=== PATIENT | male | born 1965 | race Caucasian/White ===

== ENCOUNTER 2017-09-14 09:33 | Day surgery (SDC) | payer OTHER ==
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
[2017-09-14] MEDS ORDERED: ceFAZolin 2 GM/DEXTROSE 100 ML IV ONE (09:50)
[2017-09-14] MEDS ORDERED: LR 1,000 ML IV SCH (09:50)
[2017-09-14] MEDS ORDERED: LR 1,000 ML IV ONE (09:51)
[2017-09-14] MEDS ORDERED: LIDOCAINE 1% 2 ML INJ ID PRN (09:51)
[2017-09-14] MEDS ORDERED: BUPIVACAINE/EPI 0.5% 30 ML SDV ONE (10:02)
[2017-09-14] MEDS ORDERED: MIDAZOLAM 2 MG/2 ML VIAL IVP ONE (10:25)
--- NOTE | 2017-09-14 10:27 | PDANEPAE ---
ANE History of Present Illness s/p right distal radius fx p/f ORIF ANE Past Medical History - Cardiovascular History Hx Hypertension: No Hx Arrhythmias: No Hx Chest Pain: No Hx Coronary Artery / Peripheral Vascular Disease: No Hx CHF / Valvular Disease: No Hx Palpitations: No Cardiovascular History Comment: BP RUNS LOW - Pulmonary History Hx COPD: No Hx Asthma/Reactive Airway Disease: No Hx Recent Upper Respiratory Infection: No Hx Oxygen in Use at Home: No Hx Sleep Apnea: No Sleep Apnea Screening Result - Last Documented: Negative - Neurologic History Hx Cerebrovascular Accident: No Hx Seizures: No Hx Dementia: No - Endocrine History Hx Diabetes: No Obesity: no - Renal History Hx Renal Disorders: No - Liver History Hx Hepatic Disorders: No - Neurological & Psychiatric Hx Hx Neurological and Psychiatric Disorders: No - Cancer History Hx Cancer: No - Congenital Disorder History Hx Congenital Disorders: No - GI History Hx Gastrointestinal Disorders: Yes - Other Health History Other Health History: NEG - Chronic Pain History Chronic Pain: No - Surgical History Prior Surgeries: R HAND REPAIR ANE Review of Systems Review of systems is: negative Review of Systems: - Exercise capacity METS (RN): 5 METS ANE Patient History - Allergies Allergies/Adverse Reactions: No Known Allergies Allergy (Unverified 09/13/17 11:52) - Home Medications Home medications: home medication list seen and reviewed Home Medications: Herbals/Supplements -Info Only 09/13/17 [Last Taken 09/12/17] Tylenol 09/13/17 [Last Taken 09/13/17 22:00] Vicodin 5-300 mg Tablet 09/13/17 [Last Taken 09/12/17] - NPO status NPO Since - Liquids (Date): 09/14/17 NPO Since - Liquids (Time): 08:10 NPO Since - Solids (Date): 09/13/17 NPO Since - Solids (Time): 22:30 - Anes Hx Anes Hx: no prior problems - Smoking Hx Smoking Status: Never smoked - Family Anes Hx Family Hx Anesthesia Complications: NEG ANE Labs/Vital Signs - Vital Signs Blood Pressure: 116/83 Heart Rate: 55 Respiratory Rate: 14 O2 Sat (%): 97 Height: 182.88 cm Weight: 71.668 kg ANE Physical Exam - Airway Neck exam: FROM Mallampati Score: Class 1 Mouth exam: normal dental/mouth exam - Pulmonary Pulmonary: no respiratory distress - Cardiovascular Cardiovascular: regular rate and rhythym - ASA Status ASA Status: I ANE Anesthesia Plan Anesthesia Plan: GA w LMA
[2017-09-14] MEDS ORDERED: fentaNYL 100 MCG/2 ML INJ ONE ×3 (10:31→13:03)
[2017-09-14] MEDS ORDERED: PROPOFOL 200 MG/20 ML VIAL ONE (10:31)
[2017-09-14] MEDS ORDERED: LIDOCAINE 2% 5 ML SDV ONE (10:33)
--- NOTE | 2017-09-14 11:04 | PDHPUP ---
History & Physical Update H&P update statement: This history and physical update is based on an assessment of the patient which was completed after admission or registration (within 24 hours), but prior to the surgery/procedure. H&P update: no change in patient's condition since H&P completed
[2017-09-14] MEDS ORDERED: HYDROmorphONE/DILAUDID 2 MG/ML INJ IVP PRN (12:12)
[2017-09-14] MEDS ORDERED: NALOXONE HCL 0.4 MG/ML INJ IVP PRN (12:12)
[2017-09-14] MEDS ORDERED: ACETAMINOPHEN 500 MG TAB PO PRN (12:12)
[2017-09-14] MEDS ORDERED: PROMETHAZINE HCL 25 MG/ML INJ IVP PRN (12:12)
[2017-09-14] MEDS ORDERED: ALBUTEROL 3 ML DEYVIAL IH PRN (12:12)
[2017-09-14] MEDS ORDERED: LR 500 ML IV PRN (12:12)
[2017-09-14] MEDS ORDERED: oxyCODONE IR 5 MG TAB PO PRN (12:12)
[2017-09-14] MEDS ORDERED: LABETALOL HCL 5 MG/ML 20 ML MDV IVP PRN (12:12)
[2017-09-14] MEDS ORDERED: HYDROCODONE/APAP 5/325 TAB PO PRN (12:12)
[2017-09-14] MEDS ORDERED: ONDANSETRON 4 MG/2 ML VIAL IVP PRN (12:12)
--- NOTE | 2017-09-14 12:12 | POSTANESTH ---
Post Anesthetic Evaluation Cardiovascular Status: Normal, Stable Respiratory Status: Normal, Stable Level of Consciousness/Mental Status: Can Participate in Eval, Alert and Oriented Pain Control: Adequate, Prn Tx Ordered Nausea/Vomiting Control: Adequate, Prn Tx Ordered Complications Possibly Related to Anesthesia: None Noted
[2017-09-14] MEDS ORDERED: OXYCODONE/APAP 5/325 TAB PO PRN (12:43)
--- NOTE | 2017-09-14 12:47 | POSTOPPROG ---
Post Op Note Date of Operation: 09/14/17 Surgeon: James Ramires Music Educator: Oliva Schafer, PAC Anesthesia: GET(General Endotracheal), LMA Pre-op Diagnosis: Right distal radius fracture Post-op Diagnosis: Right distal radius fracture Indication: Right distal radius fracture Procedure: ORIF right distal radius Inf/Abcess present in the surg proc area at time of surgery?: No Depth: Deep Incisional (Fascial) EBL: Minimal Complications: None.
[2017-09-14] MEDS: fentaNYL 100 MCG/2 ML INJ IVP PRN ×2 (13:07→13:18)
[2017-09-14] MEDS ORDERED: HYDROCODONE/APAP 5/325 TAB ONE (13:13)
[2017-09-14] MEDS ORDERED: HYDROmorphONE/DILAUDID 1 MG/ML INJ ONE (13:20)
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
[2017-09-14 14:28] VITALS: BP 120/79
== END 2017-09-14 16:00 | disposition home or self-care (01) ==
LOC: FSGY 09:33
PROVIDERS: ATTEND Orthopaedic Surgery
PROC: 0PSH04Z Reposition Right Radius with Internal Fixation Device, Open Approach (ICD-10-PCS; principal; 2017-09-14 11:00)
DX: S52.571A Other intraarticular fracture of lower end of right radius, initial encounter for closed fracture (principal); S52.125A Nondisplaced fracture of head of left radius, initial encounter for closed fracture; V18.0XXA Pedal cycle driver injured in noncollision transport accident in nontraffic accident, initial encounter; Y93.55 Activity, bike riding
CPT/HCPCS: C1713; J0690; J1170; J2250; J2704; J3010

== ENCOUNTER 2018-01-19 21:12 | Emergency (ER) | payer OTHER ==
[2018-01-19] MEDS ORDERED: NS 1,000 ML IV ONE (21:24)
--- NOTE | 2018-01-19 21:24 | EDPHY ---
H & P Stated Complaint: RLQ pain N/V Time Seen by Provider: 01/19/18 21:24 HPI/ROS: HPI CHIEF COMPLAINT: Right flank pain. HISTORY OF PRESENT ILLNESS: 52-year-old male, presents emergency room with right flank pain. This started at 830 this evening. Describes sharp stabbing right flank pain. Also complains of urgency. Associated nausea with 1 episode of vomiting here. Denies fever, chest pain, shortness of breath. Main complaint right flank pain. Past Medical History: Denies significant medical history Past Surgical History: Right wrist surgery Social History: Denies daily use drugs alcohol tobacco. Family History: Noncontributory ROS REVIEW OF SYSTEMS: 10 Systems were reviewed and negative with the exception of the elements mentioned in the history of present illness. Exam Constitutional triage nursing summary reviewed, vital signs reviewed, awake/ alert. Eyes normal conjunctivae and sclera, EOMI, PERRLA. HENT normal inspection, atraumatic, moist mucus membranes, no epistaxis, neck supple/ no meningismus, no raccoon eyes. Respiratory clear to auscultation bilaterally, normal breath sounds, no respiratory distress, no wheezing. Cardiovascular rate normal, regular rhythm, no murmur, no edema, distal pulses normal. Gastrointestinal soft, non-tender, no rebound, no guarding, normal bowel sounds, no distension, no pulsatile mass. Genitourinary mild right CVA tenderness. Musculoskeletal no midline vertebral tenderness, full range of motion, no calf swelling, no tenderness of extremities, no meningismus, good pulses, neurovascularly intact. Skin pink, warm, & dry, no rash, skin atraumatic. Neurologic awake, alert and oriented x 3, AAOx3, moves all 4 extremities equally, motor intact, sensory intact, CN II-XII intact, normal cerebellar, normal vision, normal speech. Psychiatric normal mood/affect. Heme/Lymph/Immune no lymphadenopathy. Differential diagnosis includes but is not limited to and in no particular order : Bowel obstruction, appendicitis, gallbladder disease, diverticulitis, colitis , enteritis, perforated viscus, gastritis, GERD, esophagitis, urinary tract infection, pyelonephritis, kidney stones Medical Decision Making: Plan for this patient IV establishment IV fluid bolus , IV Dilaudid IV Zofran for nausea pain control. Check UA, basic blood work, CT scan abdomen pelvis without contrast for flank pain. Re-evaluation: CT scan abdomen pelvis without contrast shows right-sided UVJ stone 3 mm with hydronephrosis. Additionally patient has peptic cyst that need outpatient follow-up. I have instructed the patient of this. CT scan reviewed. Right-sided kidney stone. Discussed liver cyst with patient Recommend follow up with primary care doctor. Source: Patient - Personal History Current Tetanus/Diphtheria Vaccine: Unsure Current Tetanus Diphtheria and Acellular Pertussis (TDAP): Unsure - Medical/Surgical History Hx Asthma: No Hx Chronic Respiratory Disease: No Hx Diabetes: No Hx Cardiac Disease: No Hx Renal Disease: No Hx Cirrhosis: No Hx Alcoholism: No Hx HIV/AIDS: No Hx Splenectomy or Spleen Trauma: No - Social History Smoking Status: Never smoked Constitutional: Initial Vital Signs Temperature (C) 36.9 C 01/19/18 21:14 Heart Rate 61 01/19/18 21:14 Respiratory Rate 16 01/19/18 21:14 Blood Pressure 135/77 H 01/19/18 21:14 O2 Sat (%) 100 01/19/18 21:14 O2 Delivery Mode Room Air Allergies/Adverse Reactions: No Known Allergies Allergy (Unverified 09/13/17 11:52) Home Medications: Medication Instructions Recorded Herbals/Supplements -Info Only 09/13/17 Tylenol 09/13/17 Vicodin 5-300 mg Tablet 09/13/17 Hydrocodone/APAP 5/325 [Kingsland 1 - 2 tab PO Q4H PRN #10 tab 01/19/18 5/325] Ondansetron HCl [Zofran] 4 mg PO Q4-6PRN PRN #10 tablet 01/19/18 Tamsulosin HCl [Flomax] 0.4 mg PO DAILY #10 cap 01/19/18 Medical Decision Making - Diagnostics Imaging Results: Imaging Impressions Abdomen/Pelvis CT 01/19/18 21:29 Impression: 1. Mild to moderate right hydroureteronephrosis secondary to a 3 mm obstructing calculus in the distal right ureterovesical junction. 2. No left nephrolithiasis or hydronephrosis. 3. Constipation. 4. Two hypodense hepatic lesions which may represent cysts, but are incompletely evaluated without contrast measuring up to 1.9 cm. Recommend follow -up abdominal ultrasound imaging when the patient's medical condition permits, to exclude masses. Attention: This CT examination is specifically designed to evaluate patients who are clinically suspected of having acute obstructive uropathy. This examination does not use radiographic contrast, and as such, provides only a limited evaluation of the abdomen, pelvis and retroperitoneum. If there is further clinical suspicion for pathological conditions other than obstructive uropathy, a complete CT evaluation of the abdomen and pelvis utilizing intravenous, oral, and rectal contrast should be considered. Findings and recommendations discussed with Emergency Department physician, Pipe Lim MD at 2159 hour, 01/19/2018. Final report concurs with initial preliminary interpretation. - Data Points Laboratory Results: Laboratory Results 01/19/18 21:20 01/19/18 21:20 01/19/18 01/19/18 01/19/18 21:25 21:20 21:20 WBC RBC Hgb Hct MCV MCH MCHC RDW Plt Count MPV Neut % (Auto) Lymph % (Auto) [place] % (Auto) Eos % (Auto) Baso % (Auto) Nucleat RBC Rel Count Absolute Neuts (auto) Absolute Lymphs (auto) Absolute Monos (auto) Absolute Eos (auto) Absolute Basos (auto) Absolute Nucleated RBC Immature Gran % Seg Neutrophils % Band Neutrophils % Lymphocytes % Monocytes % Eosinophils % Basophils % Metamyelocytes % Myelocytes % Promyelocytes % Blast Cells % Immature Gran # Absolute Seg Neuts Absolute Band Neuts Absolute Lymphocytes Absolute Monocytes Absolute Eosinophils Absolute Basophils Absolute Metamyelocyte Absolute Myelocytes Absolute Promyelocytes Absolute Plasma Cells Nucleated RBCs RBC/WBC/PLT Morphology Absolute Blast Cells Plasma Cells % Platelet Estimate PT 14.3 SEC SEC (12.0-15.0) INR 1.09 (0.83-1.16) APTT 30.5 SEC SEC (23.0-38.0) VBG Lactic Acid Sodium 139 mEq/L mEq/L (135-145) Potassium 3.7 mEq/L mEq/L (3.3-5.0) Chloride 101 mEq/L mEq/L (97-110) Carbon Dioxide 24 mEq/l mEq/l (22-31) Anion Gap 14 mEq/L mEq/L (8-16) BUN 16 mg/dL mg/dL (7-23) Creatinine 1.0 mg/dL mg/dL (0.7-1.3) Estimated GFR > 60 Glucose 106 mg/dL H mg/dL (70-100) Calcium 9.8 mg/dL mg/dL (8.5-10.4) Total Bilirubin 0.7 mg/dL mg/dL (0.1-1.4) Conjugated Bilirubin 0.1 mg/dL mg/dL (0.0-0.5) Unconjugated Bilirubin 0.6 mg/dL mg/dL (0.0-1.1) AST 24 IU/L IU/L (17-59) ALT 29 IU/L IU/L (21-72) Alkaline Phosphatase 55 IU/L IU/L (38-126) Total Protein 7.1 g/dL g/dL (6.3-8.2) Albumin 4.6 g/dL g/dL (3.5-5.0) Lipase 126 IU/L IU/L (23-300) Urine Color YELLOW Urine Appearance HAZY Urine pH 6.0 (5.0-7.5) Ur Specific [place] 1.019 (1.002-1.030) Urine Protein NEGATIVE (NEGATIVE) Urine Ketones 2+ H (NEGATIVE) Urine Blood NEGATIVE (NEGATIVE) Urine Nitrate NEGATIVE (NEGATIVE) Urine Bilirubin NEGATIVE (NEGATIVE) Urine Urobilinogen NEGATIVE EU EU (0.2-1.0) Ur Leukocyte Esterase NEGATIVE (NEGATIVE) Urine Glucose NEGATIVE (NEGATIVE) 01/19/18 01/19/18 21:20 21:20 WBC 8.17 10^3/uL 10^3/uL (3.80-9.50) RBC 4.79 10^6/uL 10^6/uL (4.40-6.38) Hgb 15.2 g/dL g/dL (13.7-17.5) Hct 43.6 % % (40.0-51.0) MCV 91.0 fL fL (81.5-99.8) MCH 31.7 pg pg (27.9-34.1) MCHC 34.9 g/dL g/dL (32.4-36.7) RDW 13.1 % % (11.5-15.2) Plt Count 220 10^3/uL 10^3/uL (150-400) MPV 10.2 fL fL (8.7-11.7) Neut % (Auto) 58.8 % % (39.3-74.2) Lymph % (Auto) 25.2 % % (15.0-45.0) [place] % (Auto) 7.6 % % (4.5-13.0) Eos % (Auto) 7.8 % H % (0.6-7.6) Baso % (Auto) 0.5 % % (0.3-1.7) Nucleat RBC Rel Count 0.0 % % (0.0-0.2) Absolute Neuts (auto) 4.80 10^3/uL 10^3/uL (1.70-6.50) Absolute Lymphs (auto) 2.06 10^3/uL 10^3/uL (1.00-3.00) Absolute Monos (auto) 0.62 10^3/uL 10^3/uL (0.30-0.80) Absolute Eos (auto) 0.64 10^3/uL H 10^3/uL (0.03-0.40) Absolute Basos (auto) 0.04 10^3/uL 10^3/uL (0.02-0.10) Absolute Nucleated RBC 0.00 10^3/uL 10^3/uL (0-0.01) Immature Gran % 0.1 % % (0.0-1.1) Seg Neutrophils % 64.0 % % Band Neutrophils % 1.0 % % Lymphocytes % 29.0 % % Monocytes % 5.0 % % Eosinophils % 1.0 % % Basophils % 0.0 % % Metamyelocytes % 0.0 % % Myelocytes % 0.0 % % Promyelocytes % 0.0 % % Blast Cells % 0.0 % % Immature Gran # 0.01 10^3/uL 10^3/uL (0.00-0.10) Absolute Seg Neuts 5.23 10^/uL 10^/uL (1.70-6.50) Absolute Band Neuts 0.08 10^3/uL 10^3/uL (0.00-0.70) Absolute Lymphocytes 2.37 10^3/uL 10^3/uL (1.00-3.00) Absolute Monocytes 0.41 10^3/uL 10^3/uL (0.30-0.80) Absolute Eosinophils 0.08 10^3/uL 10^3/uL (0.03-0.40) Absolute Basophils 0.00 10^3/uL L 10^3/uL (0.02-0.10) Absolute Metamyelocyte 0.00 10^3/mL 10^3/mL (0.00-0.00) Absolute Myelocytes 0.00 10^3/mL 10^3/mL (0.00-0.00) Absolute Promyelocytes 0.00 10^3/uL 10^3/uL (0.00-0.00) Absolute Plasma Cells 0.00 10^3/uL 10^3/uL (0.00-0.00) Nucleated RBCs 0 /100 WBC /100 WBC (0-0) RBC/WBC/PLT Morphology NORMAL (NORMAL) Absolute Blast Cells 0.00 10^3/uL 10^3/uL (0.00-0.00) Plasma Cells % 0.0 % % Platelet Estimate ADEQUATE (ADEQ) PT INR APTT VBG Lactic Acid 2.4 mmol/L H mmol/L (0.7-2.1) Sodium Potassium Chloride Carbon Dioxide Anion Gap BUN Creatinine Estimated GFR Glucose Calcium Total Bilirubin Conjugated Bilirubin Unconjugated Bilirubin AST ALT Alkaline Phosphatase Total Protein Albumin Lipase Urine Color Urine Appearance Urine pH Ur Specific [place] Urine Protein Urine Ketones Urine Blood Urine Nitrate Urine Bilirubin Urine Urobilinogen Ur Leukocyte Esterase Urine Glucose Medications Given: Discontinued Medications Hydromorphone HCl (Dilaudid) 1 mg IVP EDNOW ONE Stop: 01/19/18 21:31 Last Admin: 01/19/18 21:33 Dose: 1 mg Sodium Chloride (Ns) 1,000 mls @ 0 mls/hr IV EDNOW ONE; Wide Open PRN Reason: Protocol Stop: 01/19/18 21:25 Last Admin: 01/19/18 21:25 Dose: 1,000 mls Ketorolac Tromethamine (Toradol) 15 mg IVP EDNOW ONE Stop: 01/19/18 21:58 Last Admin: 01/19/18 22:02 Dose: 15 mg Ondansetron HCl (Zofran) 4 mg IVP EDNOW ONE Stop: 01/19/18 21:27 Last Admin: 01/19/18 21:30 Dose: 4 mg Departure - Departure Disposition: Home, Routine, Self-Care Clinical Impression: Flank pain Condition: Good Instructions: Kidney Stones (ED), Renal Colic (ED), Flank Pain (ED) Additional Instructions: 1. Drink lots of fluids stay well-hydrated 2. Return emergency room if there is worsening symptoms questions or concerns 3. Follow up with Urology. 4. Additionally follow up with her primary care doctor about the liver cyst. Referrals: NONE *PRIMARY CARE P,. [Primary Care Provider] - As per Instructions Prescriptions: Hydrocodone/APAP 5/325 [Kingsland 5/325] 1 - 2 tab PO Q4H PRN #10 tab PRN Reason: Pain, Moderate Ondansetron HCl [Zofran] 4 mg PO Q4-6PRN PRN #10 tablet PRN Reason: Nausea/Vomiting, Use 1st Tamsulosin HCl [Flomax] 0.4 mg PO DAILY #10 cap
[2018-01-19] MEDS ORDERED: ONDANSETRON 4 MG/2 ML VIAL IVP ONE (21:26)
[2018-01-19] MEDS ORDERED: HYDROmorphONE/DILAUDID 2 MG/ML INJ IVP ONE (21:30)
[2018-01-19 21:33] LABS: PLATELET COUNT 220 10^3/uL (150-400)
[2018-01-19] MEDS ORDERED: KETOROLAC 15 MG/1 ML SDV IVP ONE (21:57)
[2018-01-19 22:11] LABS: INR 1.09 (0.83-1.16); PROTIME(PATIENT) 14.3 SEC (12.0-15.0)
[2018-01-19] MEDS ORDERED: HYDROCOD/APAP 5/325 PREPACK#6 BTL TAKEHOME ONE ×2 (22:49)
[2018-01-19 22:54] VITALS: BP 112/66
[2018-01-19] MEDS ORDERED: TAMSULOSIN HCL 0.4 MG CAP PO ONE (22:55)
== END 2018-01-19 22:53 | disposition home or self-care (01) ==
DX: N13.2 Hydronephrosis with renal and ureteral calculous obstruction (principal); K76.9 Liver disease, unspecified; E86.9 Volume depletion, unspecified
CPT/HCPCS: 96374; J1170; J1885; J2405

== ENCOUNTER → 2018-02-12 | Outpatient (CLI) | payer OTHER | LOC: FIMAGING 06:56 | PROVIDERS: ATTEND Family Medicine | DX: K76.9 Liver disease, unspecified (principal) ==

== ENCOUNTER 2018-08-11 17:29 | Observation (INO) | payer OTHER ==
--- NOTE | 2018-08-11 17:38 | EDPHY ---
H & P Stated Complaint: disoriented --starting about 30 mins ago after bike ride- Time Seen by Provider: 08/11/18 17:37 HPI/ROS: CHIEF COMPLAINT: "As far as I can tell I got disoriented and my friend Yayo brought me here" HISTORY OF PRESENT ILLNESS: The patient is a 52 y/o male arriving with his friend for evaluation of acute disorientation during a bike ride with his friend this afternoon 30 minutes ago. He is unable to tell me any details from today or yesterday apart from saying he went on a bike ride with his friend. He says, "I'm not exactly sure why I'm here" and he is unable to tell me the last thing he ate or what year it is. His friend says up until 30 minutes ago the patient was behaving normally. The patient's friend tells me that they went on a fairly vigorous bike ride, over 30 miles, stopped for lunch and drank 3 beers with lunch. It was following that the patient developed memory difficulties. The patient denies headache, neck pain, neck adjustments, recent trauma, recent illness, weakness, or paresthesias. He is able to tell me what he does for work and where he lives. REVIEW OF SYSTEMS: A ten system review of systems was performed and is negative with the exception of the items mentioned in the HPI. 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 Lives in [place]. General Appearance: Alert. Vital signs reviewed. He does not appear intoxicated. Eyes: Pupils equal and round, no conjunctival injection, no discharge. Anicteric. ENT, Mouth: Mucous membranes are moist, no oropharyngeal erythema or edema. Neck: No lymphadenopathy, supple. Respiratory: Lungs are clear to auscultation; no wheezes, rales, or rhonchi. Cardiovascular: Regular rate and rhythm; no murmur, rub, or gallop. Gastrointestinal: Abdomen is soft and nontender, no masses or organomegaly. Skin: Warm and dry, no rashes on exposed skin, normal color. Back: Nontender to palpation over the thoracolumbar spine. No CVAT. Extremities: No lower extremity edema, no calf tenderness or swelling. Neurological: Alert and disoriented to date and event. Moving all four extremities easily and equally. Cranial nerves II through XII are examined and are intact (visual acuity not tested). Strength is 5 over 5 bilaterally with testing of all major motor groups. Sensation is intact to light touch over all 4 extremities. Deep tendon reflexes are 2+ in the biceps and knees bilaterally. [id number] is performed accurately. Speech is fluent and appropriate. He is oriented to person and place but is unable to tell me what year it is. Psychiatric: Normal affect. - Medical/Surgical History Hx Asthma: No Hx Chronic Respiratory Disease: No Hx Diabetes: No Hx Cardiac Disease: No Hx Renal Disease: No Hx Cirrhosis: No Hx Alcoholism: No Hx HIV/AIDS: No Hx Splenectomy or Spleen Trauma: No Other PMH: denies - Social History Smoking Status: Never smoked Constitutional: Initial Vital Signs Temperature (C) 36.7 C 08/11/18 17:31 Heart Rate 80 08/11/18 17:31 Respiratory Rate 16 08/11/18 17:31 Blood Pressure 113/76 08/11/18 17:31 O2 Sat (%) 97 08/11/18 17:31 O2 Delivery Mode Room Air Allergies/Adverse Reactions: No Known Allergies Allergy (Unverified 09/13/17 11:52) Home Medications: Medication Instructions Recorded NK [No Known Home Meds] 08/11/18 Medical Decision Making - Diagnostics EKG Interpretation: 12 lead EKG is interpreted in [place] by emergency department physician. Imaging: Discussed imaging studies w/ call center dispatcher Radiologist, I viewed and interpreted images myself ED Course/Re-evaluation: This is a healthy 52 y/o male who presents with acute onset amnesia 30 minutes prior to arrival. Apart from disorientation to time and event, he has a normal neurologic exam. No visible trauma. Presentation consistent with transient global amnesia. No report of any seizure activity. Plan for IV, labs, UA, head CT. Head CT is negative per Dr. Gayle, radiologist. EKG reviewed. It shows sinus rhythm with a rate of 85 and no acute ischemic changes. There is some baseline artifact. I reviewed blood work. CBC and chemistries are essentially normal. Blood alcohol level is below the legal limit for driving. He does not appear clinically intoxicated and I do not think that alcohol intake explains his presentation. It is possible that he might be mildly dehydrated, but I think that this is overall a picture of transient global amnesia. 1844: Reassessed patient and discussed findings. He is still unable to tell me why he is in the ED. He does not remember going to imaging to have a head CT this evening. He can only remember that he went for a bike ride and drank beer today during the ride. I recommended admission to the hospital, which he and his friend agree to. Differential Diagnosis: I considered a differential diagnosis that includes but is not limited to stroke , transient global amnesia, seizure, effect of intoxicants/stimulants, electrolyte abnormality. - Data Points Laboratory Results: Laboratory Results 08/11/18 18:00 08/11/18 18:00 Medications Given: Discontinued Medications Enoxaparin Sodium (Lovenox) 40 mg SC DAILY [facility] Stop: 02/08/19 08:59 Last Admin: 08/12/18 11:07 Dose: Not Given Sodium Chloride (Ns) 1,000 mls @ 3,000 mls/hr IV ONCE ONE Stop: 08/11/18 19:21 Last Admin: 08/11/18 19:03 Dose: 1,000 mls Sodium Chloride (Ns) 1,000 mls @ 100 mls/hr IV CONT [place] Stop: 08/12/18 06:14 Last Admin: 08/11/18 21:20 Dose: 1,000 mls Departure - Departure Disposition: [facility] Inpatient Acute Clinical Impression: Transient global amnesia Condition: Good Report Scribed for: Delmy Larsen Report Scribed by: Cyndi Lopez Date of Report: 08/11/18 Time of Report: 17:53 Physician Review and Approval Statement: 08/16/18 08:14 Portions of this note were transcribed by the medical billing specialist. I, Dr. Delmy Larsen, personally performed the history, physical exam, and medical decision- making; and confirmed the accuracy of the information in the transcribed note.
[2018-08-11 18:15] LABS: PLATELET COUNT 208 10^3/uL (150-400)
[2018-08-11] MEDS ORDERED: NS 1,000 ML IV ONE (19:02)
[2018-08-11] MEDS ORDERED: ACETAMINOPHEN 325 MG TAB PO PRN (19:12)
[2018-08-11] MEDS ORDERED: ONDANSETRON DISINTEGRATING 4 MG TAB PO PRN (19:12)
[2018-08-11] MEDS ORDERED: ONDANSETRON 4 MG/2 ML VIAL IVP PRN (19:12)
[2018-08-11] MEDS ORDERED: NS 1,000 ML IV SCH (20:15)
--- NOTE | 2018-08-11 21:07 | GHP ---
[f rep st] HISTORY AND PHYSICAL DATE OF ADMISSION: 08/11/2018 CHIEF COMPLAINT: Amnesia. HISTORY OF PRESENT ILLNESS: A 52-year-old male with no past medical history, accompanied by his friend after acute disorientation. They went for a 36 mile bike ride today and stopped at a brewery in [place] and had 3 small beers. They were biking back to their car, and about a mile from that location, the patient started slowing down. He became very confused, but no slurred speech. Kept repeating questions like "where are we, where is the car". Didn't drink enough fluids, but ate lunch. No overt weakness. In the ER with me, he cannot recall any of the events and keeps asking me what happened and asking me to repeat studies I have already explained. Denies fevers, chills, or sweats. REVIEW OF SYSTEMS: I completed a 10-point review of systems; negative except as noted in HPI. PAST MEDICAL HISTORY: None. PAST SURGICAL HISTORY: Right hand surgery for a table saw injury. SOCIAL HISTORY: Lives in [place]. 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 Denies illicits or tobacco. Cannot recall the last time he smoked marijuana. FAMILY HISTORY: Mother with dementia. ALLERGIES: None. HOME MEDICATIONS: None. PHYSICAL EXAMINATION: VITAL SIGNS: Temperature 37.1, blood pressure 116/85, heart rates in the 90s, respirations 16, 98% on room air. GENERAL: He is well appearing, sitting up, in no acute distress but mildly anxious. HEENT: PERRLA. Moist mucous membranes. CV: Regular rate and rhythm. LUNGS: Clear. ABDOMEN: Soft, nontender, nondistended. Positive bowel sounds. : No Rizvi. MUSCULOSKELETAL: 5/5 upper and lower extremity strength. NEUROLOGIC: 2 through 12 intact. No facial droop. No pronator drift. Normal sensation to touch: PSYCH: He is alert to [place]. He knew the hospital when he looked at my jacket. Cannot tell me the date or president. He is able to recognize a pen and can tell me the clock time. LABORATORY DATA: U-tox negative. BAL 39. Sodium 139, potassium 4.4, chloride 103, carbon dioxide 21, anion gap 15, creatinine 0.9, glucose 87, calcium 9.3. WBC 9, hemoglobin 14, hematocrit 43, platelets 208. DIAGNOSTIC STUDIES: EKG personally reviewed by me, normal sinus rhythm. Head CT negative for acute abnormality. ASSESSMENT AND PLAN: 1. Transient global amnesia: Query if it was secondary to dehydration and alcohol. He is still very confused during my interview. CT head, electrolytes within normal. Check MRI brain to rule out stroke. Monitor overnight. We will have Neurology consult in the morning. Other differential diagnosis is atypical migraine. No infectious symptoms or signs. 2. Mild anion gap acidosis: Likely dehydration. We will hydrate. 3. Deep venous thrombosis prophylaxis: Sequential compression devices. DISPOSITION: Observation admission for global amnesia warranting further brain imaging. /[id number]/MODL MTDD
[2018-08-12] MEDS ORDERED: ENOXAPARIN 40 MG/0.4 ML SYR SC SCH (09:00)
[2018-08-12 11:18] VITALS: BP 104/62
--- NOTE | 2018-08-12 23:48 | CPEKG ---
Test Reason : OPEN Blood Pressure : / mmHG Vent. Rate : 085 BPM Atrial Rate : 088 BPM P-R Int : 188 ms QRS Dur : 072 ms QT Int : 376 ms P-R-T Axes : 070 069 048 degrees QTc Int : 447 ms Sinus rhythm Confirmed by Delmy Larsen ([id number]) on 08/12/2018 11:47:42 PM Referred By: Delmy Larsen Confirmed By:Delmy Larsen
--- NOTE | 2018-08-13 02:39 | GCON ---
[f rep st] CONSULTATION NEUROLOGY CONSULT. DATE OF CONSULTATION: 08/12/2018 CHIEF COMPLAINT: Amnesia. HISTORY OF PRESENT ILLNESS: Mr. 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 He went on his [address]st [address] bike ride of the season yesterday going around 38 miles at a very intense high exertion pace. They stopped for lunch. The patient had 3 light beers with lunch along with some food. He thinks he stayed moderately hydrated. Sometime after lunch, the patient became confused and was asking his friend repetitively where they were and asking where their car was. Apparently he was unable to form new memories for around 6+ hours with slow resolution. There was no focal motor, sensory, or bulbar symptoms. There were no convulsive symptoms. The patient came to the ED for evaluation, had a brain MRI along with head CT. Both were normal. This head MRI shows a very healthy-looking brain with no significant white matter changes. No acute infarct. No mass, lesions, or tumors. He has had resolution overnight and is "95%" back to normal according to his friend. He has never had anything like this before. No history of migraine. No epilepsy risk factors. REVIEW OF SYSTEMS: Was done only pertinent to the HPI. For past medical history, social history, family history, home medications, allergies, see Dr. Castaneda's note. PHYSICAL EXAM: VITAL SIGNS: Blood pressure is 104/62, temperature 36.8, heart rate 60s. GENERAL: Awake and alert, lucid. He has intact. Delayed recall. No aphasia. Cranial nerve exam is normal 2 through 7 and 12. Motor exam is normal for strength, tone, reflexes throughout. Sensory exam normal to light touch throughout. Coordination is normal in upper and lower extremities. IMPRESSION/PLAN: 1. Transient global amnesia. Overall, the patient's clinical history is consistent with a diagnosis of transient global amnesia. He was counseled at length regarding this diagnosis, prognosis and risk of recurrence. His blood alcohol content is consistent with how much he drank and was below the legal limit for driving and he was not intoxicated clinically. This may have been a risk factor, but certainly not the entire cause for amnesia. The patient feels well now and would like to discharge home. I spoke to the hospitalist regarding the plan and we agreed on the following: The patient can discharge home and we will do an outpatient 4 hour video EEG and follow up afterwards. The patient had agreed not to drive and be on seizure precautions/see me as an outpatient. I will look forward to follow up with him. No further recommendations. Please do not hesitate to call if there are any questions or changes in his neurologic status. Seventy minutes; over 50% in direct counseling and coordination of care. /[id number]/MODL MTDD
--- NOTE | 2018-08-15 10:57 | GDS ---
[f rep st] DISCHARGE SUMMARY DISCHARGE DIAGNOSES: Transient global amnesia. CONSULTATIONS: Neurology. STUDIES AND PROCEDURES: 1. MRI of the brain. 2. CT of the head. PHYSICAL EXAM: GENERAL: The patient is alert. VITAL SIGNS: Afebrile at 36.8, pulse is 60, respira tory rate 16, blood pressure is 104/62. He is saturating 95% on room air. I have seen and evaluated the patient on the day of discharge. HOSPITAL COURSE: The patient is a 52-year-old male who presented to the emergency room with complain ts of memory loss. He was evaluated during this hospitalization with CT of the head, as well as MRI of the brain. He did receive a consultation from Neurology. It was noted that the patient was suffe ring from transient global amnesia. His symptoms improved during this hospitalization, but did not c ompletely resolved. It was recommended that he follow up in the outpatient setting with Neurology. He will have a video EEG, as well as further followup as needed. I have discussed the patient's disp osition with Dr. Duque, who is in agreement with this plan. DISCHARGE MEDICATIONS: Please refer to EMR form. There are no medications at the time of dispositio n. RESTRICTIONS: No driving until cleared by Neurology. FOLLOWUP: Followup will be with Dr. George Duque of Neurology. /[id number]/MODL
== END 2018-08-12 15:04 | disposition home or self-care (01) ==
LOC: F3N 20:10
PROVIDERS: ADMIT Internal Medicine; ATTEND Internal Medicine
DX: G45.4 Transient global amnesia (principal)
CPT/HCPCS: 70551-PN; 80305; G0378; G0480

== ENCOUNTER → 2018-08-16 | Outpatient (CLI) | payer OTHER ==
--- NOTE | 2018-08-20 13:13 | CPEEG ---
[f rep st] ELECTROENCEPHALOGRAM DATE OF STUDY: 08/16/2018 DATE OF INTERPRETATION: 08/20/2018 INTERPRETATION: This 4-hour video EEG recording is normal. There were no potentially epileptogenic abnormalities present in the awake or sleep recordings. During the video EEG monitoring session, the patient did not have any clinical events. REPORT: This 4-hour video EEG contains 10 Hz alpha activity over the posterior head regions. The background activity was normal and symmetric. There was no abnormal activation at rest, during photic stimulation or hyperventilation. The patient became drowsy and fell into sustained sleep during the study. There was no abnormal activation during drowsiness, sleep, or during times of arousal. The patient did not have any clinical events during the video EEG monitoring session. /[id number]/MODL MTDD
== END ==
LOC: FCPNEURO 08:29
PROVIDERS: ATTEND Psychiatry & Neurology Neurology
DX: G45.4 Transient global amnesia (principal)